=== PATIENT | male | born 1990 | race Caucasian/White ===

== ENCOUNTER 2023-07-14 10:24 | Emergency (ER) | payer MEDICAID, SELFPAY ==
[2023-07-14 10:25] VITALS: BP 161/86; PULSE 90; RESP 16; TEMP 36.7; O2SAT 97; BMI 31.2
--- NOTE | 2023-07-14 10:50 | EX.ED.DYSGE1 ---
HPI <Albina Smith RN - Last Filed: 07/14/23 11:28> History of Present Illness Chief Complaint: Ear Problem Informant: patient Onset/Context/Timing Onset: Month(s) (1) Context: Gradual Onset Timing: Intermittent Quality: Sharp Location: Left ear Current Severity: Mild Maximum Severity: Moderate Associated Symptoms Associated Symptoms: Hearing loss in left ear Narrative Narrative: Patient presents to the ED with concerns of an insect in his left ear and hearing loss over the past month. Patient reports he his had bedbugs at home which have been treated. Feels he was in contact with bedbugs at work. States he feels he can sometimes feel something moving around in his left ear. He reports hearing loss. Patient states he was able to remove something from his right ear which he felt was a bug. Denies fevers, chills, nasal congestion cough. Prior similar symptoms: No Recent Illness/Hospitalization: No PFSH <Albina Smith RN - Last Filed: 07/14/23 11:28> PFSH Medical History no medical history no medical history Home Medications hydrocortisone 1 % topical ointment 1 applic topical BID ##1 04/09/15 [Rx Last Taken Unknown] Allergy/AdvReac Type Severity Reaction Status Date / Time amoxicillin AdvReac Itching Verified 07/14/23 10:24 Family History no significant family his no significant family history Social History Smoking Status: Current every day smoker tobacco type: cigarettes ROS <Albina Smith RN - Last Filed: 07/14/23 11:28> ROS ED Constitutional Constitutional ED: Denies chills or fever(s) ENT ENT ED: Reports ear pain left; Denies rhinorrhea or sore throat Cardiovascular Cardiovascular: Denies chest pain Respiratory/Chest Respiratory/Chest: Denies cough or dyspnea Gastrointestinal Gastrointestinal: Denies abdominal pain, nausea or vomiting Musculoskeletal Musculoskeletal: Denies arthralgias or myalgias EXAM <Albina Smith RN - Last Filed: 07/14/23 11:28> Physical Exam Const Vital Signs: 07/14/23 10:25 Temperature 98.1 F Temperature Source Temporal Pulse Rate 90 Respiratory Rate 16 Blood Pressure 161/86 H Blood Pressure Mean 111 Pulse Ox 97 Oxygen Delivery Method Room Air Positive well nourished and well developed General Appearance ED: well developed HEENT Reports moist mucous membranes HEENT Narrative: Tympanic membrane of right ear [place] and shiny with small amount of cerumen noted. Tympanic membrane of left ear [place] and shiny with small amount of cerumen noted. Scab noted at 9 o'clock position. Eyes PERRL Neck no lymphadenopathy Resp normal respiratory effort and clear to auscultation bilaterally Cardio regular rate, regular rhythm, S1 normal heart sound and S2 normal heart sound Extremity normal to inspection Neuro oriented x3 Sensorium / Orientation: alert Psych mental status grossly normal Skin no rashes or lesions noted <Dr. Watson Fowler MD - Last Filed: 07/14/23 16:56> Physical Exam Const Vital Signs: 07/14/23 10:25 Temperature 98.1 F Temperature Source Temporal Pulse Rate 90 Respiratory Rate 16 Blood Pressure 161/86 H Blood Pressure Mean 111 Pulse Ox 97 Oxygen Delivery Method Room Air MDM <Albina Smith RN - Last Filed: 07/14/23 11:28> [facility] Narrative Medical decision making narrative: Patient will have bilateral ears irrigated to evaluate for foreign object. History & Record Review Discussion w/independent historian: Patient Additional Tests and Interventions Additional Tests or Interventions: Ear irrigation Treatment and Re-Evaluation :: Normal bilateral ears irrigated with return of cerumen with right greater than left. Patient reports feeling better. Patient to be discharged home. Plan discussed with patient and patient agreeable. <Dr. Watson Fowler MD - Last Filed: 07/14/23 16:56> [facility] Narrative Medical decision making narrative: Patient will have bilateral ears irrigated to evaluate for foreign object. I have personally performed a face to face assessment of the patient and have reviewed the HANSA Note. I performed a substantive portion of the visit including all aspects of the following. My vaughan findings include: History is remarkable for patient removing a bug from his right ear. He believes he has a bug in his left ear since he feels something is moving in his ear canal. He denies vertiginous symptoms. He denies drainage or blood from his ear. He states he has placed a Q-tip in there but cannot push it in far enough. He denies decreased hearing. Denies ringing in his ears. Exam is patient has cerumen in the right external auditory canal. The TM that was visualized was normal. Landmarks were noted. There is minimal amount of wax in the left. There is no evidence of foreign body or bug. TM was visualized and normal. Medical Decision Making ears were irrigated. Patient has significant amount of wax that was removed from the right ear and minimal from the left. There was no foreign body or insect noted. Other additions or changes: [None] Discharge Plan Triage Chief Complaint: Ear Problem ED Provider: Watson Fowler Dx/Rx/DC Orders Clinical Impression: Ear build-up Instructions: ED Cerumen Impaction Treated Prescriptions: No Action hydrocortisone 1 APPLIC ointment 1 applic topical BID Qty: 1 0RF Primary Care Provider: Care Physician,No Primary Referrals: Angie Mann MD [Med Staff - Nurse Office] - Care Physician,No Primary [Primary Care Provider] - Activity Restrictions/Additional Instructions: Do not use Q-tips. Follow-up with Dr. Mann in 1 to 2 weeks as needed. Disposition Disposition: Home, Self Care Discharge Date/Time: 07/14/23 11:36
== END 2023-07-14 11:36 | disposition home or self-care (01) ==
LOC: ED 11:33
PROVIDERS: Emergency Provider Emergency Medicine; Visit Provider Emergency Medicine
DX: H61.23 Impacted cerumen, bilateral (principal); X58.XXXA Exposure to other specified factors, initial encounter; F17.210 Nicotine dependence, cigarettes, uncomplicated; Z20.7 Contact with and (suspected) exposure to pediculosis, acariasis and other infestations
CPT/HCPCS: 69209; 99283